=== PATIENT | female | born 1935 | race Caucasian/White ===

== ENCOUNTER 2018-01-07 07:17 | Inpatient (IN) ==
[2018-01-07] MEDS ORDERED: Sod Chloride 0.9% Inj 1,000 ML IV.SIG SCH (08:00)
[2018-01-07 08:11] LABS: Baso # (Auto) 0.1 th/mm3 (0.0-0.2); Baso % (Auto) 0.8 % (0.0-2.0); Eos # (Auto) 0.1 th/mm3 (0.0-0.4); Eos % (Auto) 1.9 % (0.0-4.0); Hematocrit 30.3 % (35.0-46.0); Hemoglobin 9.9 gm/dL (11.6-15.3); Lymph # (Auto) 0.8 th/mm3 (1.0-4.8); Lymph % (Auto) 12.2 % (9.0-44.0); Mean Corpuscular HGB Conc 32.6 % (32.0-36.0); Mean Corpuscular Hemoglobin 25.7 pg (27.0-34.0); Mean Corpuscular Volume 78.7 fL (80.0-100.0); Mean Platelet Volume 7.4 fL (7.0-11.0); Mono # (Auto) 0.7 th/mm3 (0.0-0.9); Mono % (Auto) 11.4 % (0.0-8.0); Neut # (Auto) 4.9 th/mm3 (1.8-7.7); Neut % (Auto) 73.7 % (16.0-70.0); Platelet Count 224 th/mm3 (150-450); Red Blood Count 3.85 mil/mm3 (4.00-5.30); White Blood Count 6.6 th/mm3 (4.0-11.0)
[2018-01-07 08:25] LABS: Activated Partial Thrombo Time 26.6 sec (24.3-30.1); Prothrombin Time 10.2 sec (9.8-11.6)
[2018-01-07 08:32] LABS: Carbon Dioxide 26.8 meq/L (21.0-32.0); Potassium 3.9 meq/L (3.5-5.1)
[2018-01-07] MEDS ORDERED: fentaNYL Citrate Inj 250 MCG/5 ML Ampul ONE (09:07)
[2018-01-07] MEDS ORDERED: ceFAZolin 2 GM Premix Inj 2 GM/50 ML PIGGYBACK IV.SIG ONE (09:59)
[2018-01-07] MEDS ORDERED: fentaNYL Citrate Inj 100 MCG/2 ML Ampul ONE (10:18)
--- NOTE | 2018-01-07 10:41 | P.RAD ---
Post Procedure Progress Note - Pre Procedure Diagnosis (1) Abdominal pain (2) Mesenteric ischemia due to arterial insufficiency - Post Procedure Diagnosis (1) Abdominal pain (2) Mesenteric ischemia due to arterial insufficiency - Procedure Information Procedure Date: 01/07/18 Supervising Radiologist: Derian Birch Jr, MD Proceduralist/Assist: Chepe Hill Estimated blood loss (mL): 0 Anesthesia: Conscious Sedation - Plan of Activity Patient to Unit: ROPU Patient Condition: Good See PACS Report for procedural detail/treatment. Vascular - Arterial Procedure Celiac Procedure: Angiogram, Stent Placement - Access right Leg Closure Site: right vascular closure device - Additional Information Findings: 60% stenosis of celiac with occluded SMA and VICTOR MANUEL. Successful primary stenting of celiac with good result. Plan: Loading dose of Plavix in holding. Script for Plavix x 90 days given. F/U with IR in 1 week.
[2018-01-07] MEDS ORDERED: Morphine Sulfate Inj 2 MG/ML Vial ONE (11:47)
[2018-01-07] MEDS ORDERED: Morphine Sulfate Inj 2 MG/ML Vial IV.PUSH ONE (12:30)
--- NOTE | 2018-01-07 13:09 | IR ---
EXAM DATE: 01/07/2018 12:00 AM EDT AGE/SEX: 82 years / Female INDICATIONS: Patient presents with Mesenteric/Celiac artery stenosis in need of a Mesenteric Angiogr am with possible interventions. Patient has abdominal pain with mesenteric ischemia. SMA and VICTOR MANUEL are occluded. Celiac is stenotic. CLINICAL DATA: This is the patient's initial encounter. Patient reports that signs and symptoms have been present for 3 months and indicates a pain score of 0/10. MEDICAL/SURGICAL HISTORY: Carcinoma, colon. Carcinoma, breast. Hypothyroidism. Anxiety, HTN, Bronchitis, Gastroparesis syndrome, GERD. . Knee surgery, Lumpectomy, Bilateral foot surgery. COMPARISON: No prior exams available for comparison. FLUORO TIME (min): 10 IMAGE SERIES: 11 ACCESS SITE: Right femoral artery SEDATION TIME (min): 45 CONTRAST (cc): 70 Visipaque (iodixanol) MEDICATION(S): 5 mg midazolam (Versed) IV ; 275 mcg fentanyl (Sublimaze) IV ; ; ; DEVICE(S): Right celiac artery stent (balloon expanding) Visi-Pro 7mm x 17mm ; Right common femoral artery Angio -Seal 6 FR ; ; ; ; ; . . PROCEDURE : 1. Ultrasound-guided puncture of the access site. 2. Conscious sedation with continuous EKG and Oximetry monitoring. 3. Angiography of the celiac 4. Primary stenting of the celiac 5. Angiography of the celiac post stenting 6. Angio-Seal closure device The patient's prior CTA October 17, 2017 was reviewed. The risks, benefits and alternatives to the proc edure were explained and verbal and written consent was obtained. The site was prepped in sterile fa shion. Full sterile technique was used, including cap, mask, sterile gloves and gown and a large nataliya rile sheet. Hand hygiene and 2% chlorhexidine and/or betadine/alcohol prep was utilized per protocol for cutaneous antisepsis. Sterile gel and sterile probe cover were utilized for ultrasound guidance . The skin and subcutaneous tissues were infiltrated with local anesthetic solution. With ultrasound and fluoroscopic guidance the common femoral artery was punctured and a vascular bishop th was placed. An angiogram was performed to confirm the appropriate position of the access. Selectio n of the celiac was then performed utilizing a Contra catheter. This shows a high-grade stenosis invo lving the proximal celiac with poststenotic dilatation. The SMA is occluded. Intervention was felt pr udent. A 6 Maldivian steerable sheath was placed and utilized to engage the origin of the celiac. Multip le images were performed in orthogonal positions. This confirms the high-grade nature of the stenosis . Through the steerable sheath a 7 mm x 17 mm balloon expandable stent was deployed. The balloon on t he stent was sufficient to be catheter occluding through the stenosis of the celiac. Under fluoroscop ic control the stent was deployed. 7 geo of pressure which is just shy of normal. A waist was initial ly noted on the balloon which resolved with 7 geo of pressure. A follow-up angiogram shows resolution of the stenosis with good brisk antegrade flow through the previously stenotic segment. The catheter and sheath were removed. Angio-Seal closure device was utilized at the access site. The patient tolerated the procedure well and there were no complications. Conscious sedation was performed with the prescribed dosages and duration as above in the presence of an independent trained radiology nurse to assist in the monitoring of the patient. EKG and oximetry remained stable throughout the procedure. CONCLUSION: 1. 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 The patient tolerated p rimary stenting. A good result was noted. The patient was placed on Plavix for 90 days. Electronically signed by: Derian Birch MD 01/07/2018 1:08 PM EDT
--- NOTE | 2018-01-07 14:14 | P.RAD ---
Radiology Note Pt seen following uneventful celiac artery stenting this morning. She reports a bloated, painful sensation to epigastrum. Denies this sensation at home. Has some nausea. No vomiting. VSS. AF Abd: ND, minimally tender to epigastric palpation, no guarding or rebound, CT: some ascites (present on previous OP CT), mild edema of pancreatic head. No hemorrhage. Stent in good position. A/P: Post procedure pain and nausea. Not felt related to procedure. Pt may be developing a pancreatitis. Will admit and have hospitalist evaluate to determine the workup. Their help is much appreciated.
--- NOTE | 2018-01-07 15:15 | CT ---
EXAM DATE: 01/07/2018 1:29 PM EDT AGE/SEX: 82 years / Female INDICATIONS: Mid abdomen pain after procedure CLINICAL DATA: This is the patient's initial encounter. Patient reports that signs and symptoms have been present for 1 day and indicates a pain score of 8/10. MEDICAL/SURGICAL HISTORY: Hypertension. Carcinoma, breast. Carcinoma, breast. None. RADIATION DOSE: 9.91 CTDI (mGy) COMPARISON: CTA fluoroscopy [facility] October 17, [address] PCI, [address] ABDOMEN AND PELVIS W/ CONTRA ST, 09/09/2015. . TECHNIQUE: Multiple contiguous axial images were obtained through the abdomen. Images were obtained using multiple row detector helical technique. Using automated exposure control and adjustment of the mA and/or kV according to patient size, radiation dose was kept as low as reasonably achievable to o btain optimal diagnostic quality images. DICOM format image data is available electronically for rev iew and comparison. FINDINGS: Lower Lungs: The visualized lower lungs are clear. Liver: Small volume ascites. This volume of ascites was present on the prior study from 2018. The dorina er has a homogeneous density without space-occupying lesion. There is no dilation of the biliary tree . Spleen: Homogeneous density without enlargement. Pancreas: There is edema surrounding the entire pancreas but most abundant within the pancreatic hea d. The pancreas is also mildly enlarged within the pancreatic head. No ductal dilatation. No hemorrha ge.. Kidneys: Normal in size and shape. No evidence of mass or hydronephrosis. Adrenal Glands: Unremarkable. Aorta: A celiac stent is observed and in good position. The fat surrounding the celiac stent is leonardo an. No hemorrhage adjacent to the stent. The aorta is calcified but without aneurysmal change. Bowel/Mesentery: Prior low anterior resection with a left lower quadrant colostomy. There is a franc tomal hernia containing loops of small bowel. This is unchanged.. Abdominal Wall: Intact. Retroperitoneum: No evidence of adenopathy in the retrocrural, para-aortic, or deep pelvic regions. Bladder: Contours are smooth. Reproductive Organs: No abnormal masses or calcifications seen. Inguinal: The inguinal region is unremarkable without evidence of adenopathy. Bony Structures: Unremarkable. CONCLUSION: 1. Edema and small volume ascites in a CT pattern suggesting acute pancreatitis. The edema involving the pancreas is new from the outside comparison study. The ascites is unchanged other than location. 2. Celiac stent in good position. No hemorrhage. 3. Prior partial colectomy and low anterior resection with left lower quadrant colostomy and parasto mal hernia containing small bowel loops. Electronically signed by: Derian Birch MD 01/07/2018 3:13 PM EDT
[2018-01-07] MEDS ORDERED: Acetaminophen/Codeine 300/30 MG Tablet PO PRN (16:49)
[2018-01-07] MEDS: Metoclopramide 10 MG Tablet PO SCH ×2 (18:04→22:07)
[2018-01-07] MEDS ORDERED: Bisacodyl 10 MG Supp RECTAL PRN (18:53)
[2018-01-07] MEDS ORDERED: Zolpidem Tartrate 5 MG Tablet PO PRN (18:53)
[2018-01-07] MEDS ORDERED: Acetaminophen 325 MG Tablet PO PRN (18:53)
[2018-01-07] MEDS ORDERED: Morphine Inj 4 MG/ML Vial IV.PUSH PRN ×3 (18:55)
[2018-01-07] MEDS ORDERED: Morphine Sulfate Inj 2 MG/ML Vial IV.PUSH PRN (18:55)
[2018-01-07] MEDS ORDERED: Naloxone Inj 0.4 MG/ML Vial IV.PUSH PRN (18:55)
--- NOTE | 2018-01-07 18:56 | P.HPIM ---
History of Present Illness Service: [facility] Primary Care Physician: UNKNOWN Chief Complaint: ABDOMINAL PAIN AND NAUSEA AND VOMITING History of Present Illness: Patient is a 82-year-old female who underwent a Stenting of the celiac artery with good results and started on Plavix by interventional radiology today Dr. Birch. Patient was noted to have some abdominal pain and some nausea and therefore patient will be held tonight and monitored for signs of pancreatitis We will get a.m. labs If these are stable hopefully patient will be eligible for discharge later tomorrow We will follow her throughout the admission for any other issues that may arise Inpatient Certification: I certify that the inpatient services were ordered in accordance with Medicare regulations governing the order. This includes certification that hospital inpatient services are reasonable and necessary and in the case of services not specified as inpatient-only under 42 CFR 419.22(n), that they are appropriately provided as inpatient services in accordance to with the 2-midnight benchmark under 43 CFR 412.3(e) Estimated Total Length of Stay (Days): 1 Plans for Post Hospital Care: Home Review of Systems All other systems reviewed negative except as stated in HPI [facility] - History History Provided By: Patient - Medical History Medical History: Medical History (Last Reviewed 01/07/18 @ 18:47 by Daryl Robb DO) Back pain Breast cancer Colon cancer Colostomy in place Hypertension Hypothyroid Stomach ulcer - Surgical History Surgical History: Surgical History (Last Reviewed 01/07/18 @ 18:47 by Daryl Robb DO) History of total right knee replacement - Family History Family History: Family History (Last Updated 01/07/18 @ 18:47 by Daryl Robb DO) Other Family history of hypertension - Tobacco History Second Hand Smoke Exposure: No Tobacco Use In Past 30 Days: No Smoking Status: Never smoker - Alcohol History How Often Do You Have a Drink Containing Alcohol: 4 or more times a week - Substance Use History Substance History: No History of Abuse - Travel History Recent Travel in the [place] Within the Last 8 Weeks: No Recent Travel Out of the Country Within the Last 8 Weeks: No Medications and Allergies Active Medications: Active Medications Acetaminophen/Codeine Phosphate (Tylenol W/Cod #3) 1 tab PO Q6H PRN PRN Reason: PAIN SCALE 1 TO 10 Last Admin: 01/07/18 18:04 Dose: 1 tab Clopidogrel Bisulfate (Plavix) 75 mg PO DAILY TIMOTHY Famotidine (Pepcid) 10 mg PO BID [facility] Levothyroxine Sodium (Synthroid) 88 mcg PO DAILY@0600 [facility] Metoclopramide HCl (Reglan) 10 mg PO QID [facility] Last Admin: 01/07/18 18:04 Dose: 10 mg Ondansetron HCl (Zofran Odt) 4 mg PO Q6H PRN PRN Reason: NAUSEA OR VOMITING Ramipril (Altace) 10 mg PO BID [facility] Allergies Allergy/AdvReac Type Severity Reaction Status Date / Time Sulfa (Sulfonamide Allergy Difficulty Verified 01/07/18 07:41 Antibiotics) Breathing Home Medications Medication Instructions Recorded Confirmed Type acetaminophen-codeine 1 tab PO Q6H PRN 01/07/18 01/07/18 History [Tylenol-Codeine #3] levothyroxine [Synthroid] 88 mcg PO DAILY 01/07/18 01/07/18 History metoclopramide HCl 10 mg PO QID 01/07/18 01/07/18 History ondansetron HCl 4 mg PO Q6-8H PRN 01/07/18 01/07/18 History ramipril 10 mg PO BID 01/07/18 01/07/18 History ranitidine HCl [Zantac] 150 mg PO BID 01/07/18 01/07/18 History Exam Vital signs: Vital Signs 01/07/18 08:02 01/07/18 10:50 01/07/18 11:05 Temperature 98.0 F 97.9 F Pulse Rate 80 80 77 Respiratory Rate 18 18 18 Blood Pressure 196/84 H 180/80 H 173/75 H Pulse Oximetry 97 93 L 98 01/07/18 11:20 01/07/18 11:35 01/07/18 11:55 Temperature Pulse Rate 86 75 74 Respiratory Rate 18 18 18 Blood Pressure 170/75 H 162/73 H 152/65 H Pulse Oximetry 97 95 97 01/07/18 12:25 01/07/18 12:30 01/07/18 12:55 Temperature Pulse Rate 75 73 Respiratory Rate 18 16 18 Blood Pressure 154/68 H 150/72 H Pulse Oximetry 96 97 01/07/18 13:25 01/07/18 13:55 01/07/18 14:45 Temperature Pulse Rate 95 H 80 78 Respiratory Rate 18 18 18 Blood Pressure 127/91 H 132/78 152/72 H Pulse Oximetry 96 96 95 01/07/18 14:55 01/07/18 15:55 01/07/18 17:10 Temperature 97.4 F L Pulse Rate 76 77 Respiratory Rate 18 18 16 Blood Pressure 145/51 H 157/67 H Pulse Oximetry 94 L 95 Intake & Output 01/06/18 01/07/18 01/07/18 18:59 06:59 18:59 Intake Total 1230 / 1230 Balance 1230 / 1230 Weight 48.988 kg Intake: IV 850 / 850 NS Inj 1,000 ML @ 100 mls/hr IV 800 / 800 .SIG .Q10H TIMOTHY Rx#:[id number] Ancef 2 GM Premix Inj 2 gm In 50 / 50 50 ml @ 0 mls/hr IV.SIG .STK- MED ONE Rx#:[id number] Oral 380 / 380 Other: # Voids 3 # Bowel Movements 0 Weight On Admission 48.988 kg Narrative: GENERAL: Awake alert and oriented x3 talkative and cooperative in mild distress SKIN: Warm and dry. HEAD: Atraumatic. Normocephalic. EYES: Pupils equal and round. No scleral icterus. No injection or drainage. EOMI ENT: No nasal bleeding or discharge. Mucous membranes pink and moist. Tongue is midline NECK: Trachea midline. No JVD. Supple CARDIOVASCULAR: Regular rate and rhythm. S1-S2 no S3 or S4 RESPIRATORY: No accessory muscle use. Clear to auscultation. Breath sounds equal bilaterally. GASTROINTESTINAL: Abdomen soft, non-tender, nondistended. Hepatic and splenic margins not palpable. Mild abdominal tenderness MUSCULOSKELETAL: Extremities without clubbing, cyanosis, or edema. No obvious deformities. NEUROLOGICAL: Awake and alert. No obvious cranial nerve deficits. Motor grossly within normal limits. Five out of 5 muscle strength in the arms and legs. Normal speech. PSYCHIATRIC: Appropriate mood and affect; insight and judgment normal. Results - Labs CBC & Chem 7: 01/07/18 07:50 01/07/18 07:50 Labs: Short CBC 01/07/18 Range/Units 07:50 WBC 6.6 (4.0-11.0) th/mm3 Hgb 9.9 L (11.6-15.3) gm/dL Hct 30.3 L (35.0-46.0) % Plt Count 224 (150-450) th/mm3 BMP 01/07/18 07:50 Sodium 137 Potassium 3.9 Chloride 104 Carbon Dioxide 26.8 BUN 9 Creatinine 0.86 Calcium 9.0 - Imaging Impressions Celiac/Hepatic Arteriogram 01/07/18 00:00 CONCLUSION: 1. 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 The patient tolerated primary stenting. A good result was noted. The patient was placed on Plavix for 90 days. Abdomen/Pelvis CT 01/07/18 12:51 CONCLUSION: 1. Edema and small volume ascites in a CT pattern suggesting acute pancreatitis. The edema involving the pancreas is new from the outside comparison study. The ascites is unchanged other than location. 2. Celiac stent in good position. No hemorrhage. 3. Prior partial colectomy and low anterior resection with left lower quadrant colostomy and parastomal hernia containing small bowel loops. Caprini VTE Risk Assessment Caprini VTE Risk Assessment: No/Low Risk (score <= 1) Caprini Risk Assessment Model: Point Value = 1 Point Value = 2 Point Value = 3 Point Value = 5 Age 41-60 Minor surgery BMI > 25 kg/m2 Swollen legs Varicose veins or History of unexplained or recurrent spontaneous Oral contraceptives or hormone replacement Sepsis (< 1 month) Serious lung disease, including pneumonia (< 1 month) Abnormal pulmonary function Acute myocardial infarction Congestive heart failure (< 1 month) History of inflammatory bowel disease Medical patient at bed rest Age 61-74 Arthroscopic surgery Major open surgery (> 45 min) Laparoscopic surgery (> 45 min) Malignancy Confined to bed (> 72 hours) Immobilizing plaster cast Central venous access Age >= 75 History of VTE Family history of VTE Factor V Leiden Prothrombin [id number] Lupus anticoagulant Anticardiolipin antibodies Elevated serum homocysteine Heparin-induced thrombocytopenia Other congenital or acquired thrombophilia Stroke (< 1 month) Elective arthroplasty Hip, pelvis, or leg fracture Acute spinal cord injury (< 1 month) Prophylaxis Regimen: Total Risk Factor Score Risk Level Prophylaxis Regimen 0-1 Low Early ambulation 2 Moderate Order ONE of the following: *Sequential Compression Device (SCD) *Heparin 5000 units SQ BID 3-4 Higher Order ONE of the following medications: *Heparin 5000 units SQ TID *Enoxaparin/Lovenox 40 mg SQ daily (WT < 150 kg, CrCl > 30 mL/min) *Enoxaparin/Lovenox 30 mg SQ daily (WT < 150 kg, CrCl > 10-29 mL/min) *Enoxaparin/Lovenox 30 mg SQ BID (WT < 150 kg, CrCl > 30 mL/min) AND/OR *Sequential Compression Device (SCD) 5 or more Highest Order ONE of the following medications: *Heparin 5000 units SQ TID (Preferred with Epidurals) *Enoxaparin/Lovenox 40 mg SQ daily (WT < 150 kg, CrCl > 30 mL/min) *Enoxaparin/Lovenox 30 mg SQ daily (WT < 150 kg, CrCl > 10-29 mL/min) *Enoxaparin/Lovenox 30 mg SQ BID (WT < 150 kg, CrCl > 30 mL/min) AND *Sequential Compression Device (SCD) Assessment and Plan - Plan Status post stenting to the celiac artery due to severe abdominal pain and history of mesenteric ischemia due to arterial insufficiency. Patient had an angiogram and stent placement. Had 60% stenosis of celiac with occluded SMA and VICTOR MANUEL and successful primary stenting of the celiac with good results by Dr. Birch today. patient has been loaded with Plavix today hypertension resume home medication-resume Altace Hypothyroidism resume Synthroid Peripheral vascular occlusive disease/PAD has already been started on Plavix A.m. labs Rule out pancreatitis with abdominal pain If labs are stable and tolerating a diet hopefully discharge tomorrow Follow-up with interventional radiology in [address] Birch Hopefully discharge tomorrow if labs are stable and no signs of pancreatitis or abdominal pain more so than usual prior to the procedure Code Status: Full code Discussed Condition With: RN and patient and case management Discharge Planning: Hopefully discharge tomorrow if labs are stable and tolerating a diet H&P: Quality - VTE Deep Vein Thrombosis/Pulmonary Embolism Present on Admission: No
[2018-01-07] MEDS: Ramipril 5 MG Capsule PO SCH (22:06)
[2018-01-07] MEDS: Famotidine 20 MG Tablet PO SCH (22:06)
[2018-01-07] MEDS: Senna/Docusate Sodium 8.6/50 MG Tablet PO SCH (22:07)
[2018-01-08] MEDS ORDERED: Levothyroxine 88 MCG Tablet PO SCH (06:00)
[2018-01-08 08:27] VITALS: RESP 16
[2018-01-08] MEDS: Famotidine 20 MG Tablet PO SCH (08:43)
[2018-01-08] MEDS: Metoclopramide 10 MG Tablet PO SCH (08:45)
[2018-01-08] MEDS: Senna/Docusate Sodium 8.6/50 MG Tablet PO SCH (08:47)
[2018-01-08] MEDS: Ramipril 5 MG Capsule PO SCH (08:50)
[2018-01-08 09:05] LABS: Baso % (Auto) 0.6 % (0.0-2.0); Eos # (Auto) 0.1 th/mm3 (0.0-0.4); Eos % (Auto) 0.9 % (0.0-4.0); Hematocrit 31.7 % (35.0-46.0); Hemoglobin 10.4 gm/dL (11.6-15.3); Lymph # (Auto) 0.7 th/mm3 (1.0-4.8); Lymph % (Auto) 11.8 % (9.0-44.0); Mean Corpuscular HGB Conc 32.7 % (32.0-36.0); Mean Corpuscular Hemoglobin 25.8 pg (27.0-34.0); Mean Corpuscular Volume 78.7 fL (80.0-100.0); Mean Platelet Volume 7.3 fL (7.0-11.0); Mono # (Auto) 0.7 th/mm3 (0.0-0.9); Neut # (Auto) 4.8 th/mm3 (1.8-7.7); Neut % (Auto) 75.7 % (16.0-70.0); Platelet Count 195 th/mm3 (150-450); Red Blood Count 4.03 mil/mm3 (4.00-5.30); Red Cell Distribution Width 18.7 % (11.6-17.2); White Blood Count 6.3 th/mm3 (4.0-11.0)
[2018-01-08 09:09] LABS: Prothrombin Time 10.2 sec (9.8-11.6)
[2018-01-08 09:27] LABS: Amylase 38 U/L (25-115); Anion Gap 9 meq/L (5-15); Aspartate Aminotransferase 20 U/L (15-37); Blood Urea Nitrogen 17 mg/dL (7-18); Carbon Dioxide 24.9 meq/L (21.0-32.0); Chloride 98 meq/L (98-107); Glomerular Filtration Rate 46 mL/min (>89); Glucose,Random 112 mg/dL (74-106); Lipase 92 U/L (73-393); Magnesium 1.8 mg/dL (1.5-2.5); Potassium 3.8 meq/L (3.5-5.1); Sodium 132 meq/L (136-145)
[2018-01-08 09:42] LABS: Alanine Aminotransferase 20 U/L (10-53); Alkaline Phosphatase 100 U/L (45-117); Free T4 (Free Thyroxine) 1.54 ng/dL (0.76-1.46); Phosphorus 4.5 mg/dL (2.5-4.9); Thyroid Stimulating Hormone 0.019 uIU/mL (0.358-3.740); Total Protein 6.4 g/dL (6.4-8.2)
--- NOTE | 2018-01-08 10:59 | P.PN ---
Subjective Interval history: This is a pleasant 82 y/o Female with status post Celiac artery stenting started on Plavix by Interventional irrigation specialist Dr Birch. Patient was noted to have some abdominal pain and some nausea and therefore patient will be held tonight and monitored for signs of pancreatitis, she has also Hypothyroidism, Colon cancer, Hypertension. 01/08: Seen in her bedroom, no vomit or diarrhea, is walking with Physical therapy specialist, has some nausea when walking at this time, seen by Interventional irrigation specialist recommended to continue Plavix at home and follow with him in one week. Physical Exam Vital signs: Vital Signs 01/07/18 11:05 01/07/18 11:20 01/07/18 11:35 Temperature Pulse Rate 77 86 75 Respiratory Rate 18 18 18 Blood Pressure 173/75 H 170/75 H 162/73 H Pulse Oximetry 98 97 95 01/07/18 11:55 01/07/18 12:25 01/07/18 12:30 Temperature Pulse Rate 74 75 Respiratory Rate 18 18 16 Blood Pressure 152/65 H 154/68 H Pulse Oximetry 97 96 01/07/18 12:55 01/07/18 13:25 01/07/18 13:55 Temperature Pulse Rate 73 95 H 80 Respiratory Rate 18 18 18 Blood Pressure 150/72 H 127/91 H 132/78 Pulse Oximetry 97 96 96 01/07/18 14:45 01/07/18 14:55 01/07/18 15:55 Temperature Pulse Rate 78 76 Respiratory Rate 18 18 18 Blood Pressure 152/72 H 145/51 H Pulse Oximetry 95 94 L 01/07/18 17:10 01/07/18 19:33 01/07/18 20:00 Temperature 97.4 F L 97.2 F L Pulse Rate 77 81 Respiratory Rate 16 16 16 Blood Pressure 157/67 H 126/60 Pulse Oximetry 95 99 01/08/18 00:00 01/08/18 04:00 01/08/18 08:00 Temperature 97.8 F 97.7 F 97.3 F L Pulse Rate 80 97 H 88 Respiratory Rate 16 17 16 Blood Pressure 120/62 120/58 L 132/60 Pulse Oximetry 97 96 95 Intake & Output 01/07/18 01/08/18 01/08/18 18:59 06:59 18:59 Intake Total 1610 / 1610 Balance 1610 / 1610 Weight 48.988 kg Intake: IV 850 / 850 NS Inj 1,000 ML @ 100 mls/hr IV 800 / 800 .SIG .Q10H TIMOTHY Rx#:[id number] Ancef 2 GM Premix Inj 2 gm In 50 / 50 50 ml @ 0 mls/hr IV.SIG .STK- MED ONE Rx#:[id number] Oral 760 / 760 Other: # Voids 3 1 Date of Last Bowel Movement 01/07/18 01/07/18 # Bowel Movements 0 Weight On Admission 48.988 kg Narrative: GENERAL: Awake alert and oriented x3 talkative and cooperative in mild distress SKIN: Warm and dry. HEAD: Atraumatic. Normocephalic. EYES: Pupils equal and round. No scleral icterus. No injection or drainage. EOMI ENT: No nasal bleeding or discharge. Mucous membranes pink and moist. Tongue is midline NECK: Trachea midline. No JVD. Supple CARDIOVASCULAR: Regular rate and rhythm. S1-S2 no S3 or S4 RESPIRATORY: No accessory muscle use. Clear to auscultation. Breath sounds equal bilaterally. GASTROINTESTINAL: Abdomen soft, non-tender, nondistended. Hepatic and splenic margins not palpable. Mild abdominal tenderness MUSCULOSKELETAL: Extremities without clubbing, cyanosis, or edema. No obvious deformities. NEUROLOGICAL: Awake and alert. No obvious cranial nerve deficits. PSYCHIATRIC: Appropriate mood and affect; insight and judgment normal. Results - Labs CBC & Chem 7: 01/08/18 08:48 01/08/18 08:48 Laboratory Results - last 24 hr 01/08/18 01/08/18 01/08/18 08:48 08:48 08:48 WBC 6.3 RBC 4.03 Hgb 10.4 L Hct 31.7 L MCV 78.7 L MCH 25.8 L MCHC 32.7 RDW 18.7 H Plt Count 195 MPV 7.3 Neut % (Auto) 75.7 H Lymph % (Auto) 11.8 [place] % (Auto) 11.0 H Eos % (Auto) 0.9 Baso % (Auto) 0.6 Neut # (Auto) 4.8 Lymph # (Auto) 0.7 L [place] # (Auto) 0.7 Eos # (Auto) 0.1 Baso # (Auto) 0.0 WBC Differential . Differential Comment Auto diff final PT 10.2 INR 1.0 Sodium 132 L Potassium 3.8 Chloride 98 Carbon Dioxide 24.9 Anion Gap 9 BUN 17 Creatinine 1.14 H Estimated GFR 46 L Random Glucose 112 H Calcium 8.0 L D Phosphorus 4.5 Magnesium 1.8 Total Bilirubin 0.6 AST 20 ALT 20 Alkaline Phosphatase 100 Total Protein 6.4 Albumin 3.0 L Amylase 38 Lipase 92 TSH 0.019 L Free T4 1.54 H - Imaging Impressions Celiac/Hepatic Arteriogram 01/07/18 00:00 CONCLUSION: 1. 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 The patient tolerated primary stenting. A good result was noted. The patient was placed on Plavix for 90 days. Abdomen/Pelvis CT 01/07/18 12:51 CONCLUSION: 1. Edema and small volume ascites in a CT pattern suggesting acute pancreatitis. The edema involving the pancreas is new from the outside comparison study. The ascites is unchanged other than location. 2. Celiac stent in good position. No hemorrhage. 3. Prior partial colectomy and low anterior resection with left lower quadrant colostomy and parastomal hernia containing small bowel loops. - Procedures Status post stenting to the celiac artery due to severe abdominal pain and history of mesenteric ischemia due to arterial insufficiency. Assessment and Plan - Plan Status post stenting to the celiac artery due to severe abdominal pain and history of mesenteric ischemia due to arterial insufficiency. Patient had an angiogram and stent placement. Had 60% stenosis of celiac with occluded SMA and VICTOR MANUEL and successful primary stenting of the celiac with good results by Dr. Birch today. patient has been loaded with Plavix today, okay to discharge at this time. hypertension controlled. Hypothyroidism continue Synthroid Peripheral vascular occlusive disease/PAD has already been started on Plavix Follow-up with interventional radiology in [address] Birch Code Status: Full Code Discussed Condition With: patient and nurse. also Physical Therapy at this time. Discharge Planning: Discharge Home.
--- NOTE | 2018-01-08 11:04 | P.RAD ---
Radiology Note Pt states feeling much better this morning. Reduction in epigastric pain. Denies nausea. VSS, remains AF ABD: ND, NT, Groin: clean and dry, no hematoma A/P: Improving pain. Doubtful this represents acute pancreatitis. Unsure to etiology of the pain. OK to d/c home from IR standpoint. Will have patient continue daily Plavix at home. She has been given a script. Return to IR in 1 week for f/u.
--- NOTE | 2018-01-08 11:27 | P.DS ---
Date of admission: 01/07/18 14:28 Primary care physician: UNKNOWN Attending physician on discharge: Rui Hull Anticipated date of discharge: 01/08/18 Brief History from admission: Patient is a 82-year-old female who underwent a Stenting of the celiac artery with good results and started on Plavix by interventional radiology today Dr. Birch. Patient was noted to have some abdominal pain and some nausea and therefore patient will be held tonight and monitored for signs of pancreatitis We will get a.m. labs If these are stable hopefully patient will be eligible for discharge later tomorrow We will follow her throughout the admission for any other issues that may arise DS: Diagnosis - Discharge Diagnosis (1) Abdominal pain Status: Acute (2) Mesenteric ischemia due to arterial insufficiency Status: Acute DS: Summary Hospital Course: This is a pleasant 82 y/o Female with status post Celiac artery stenting started on Plavix by Interventional clutch specialist Dr Birch. Patient was noted to have some abdominal pain and some nausea and therefore patient will be held tonight and monitored for signs of pancreatitis, she has also Hypothyroidism, Colon cancer, Hypertension. 01/08: Seen in her bedroom, no vomit or diarrhea, is walking with Physical therapy specialist, has some nausea when walking at this time, seen by Interventional clutch specialist recommended to continue Plavix at home and follow with him in one week. Assessment and Plan - Plan Status post stenting to the celiac artery due to severe abdominal pain and history of mesenteric ischemia due to arterial insufficiency. Patient had an angiogram and stent placement. Had 60% stenosis of celiac with occluded SMA and VICTOR MANUEL and successful primary stenting of the celiac with good results by Dr. Birch today. patient has been loaded with Plavix today, okay to discharge at this time. hypertension controlled. Hypothyroidism continue Synthroid Peripheral vascular occlusive disease/PAD has already been started on Plavix Follow-up with interventional radiology in [address] Birch Code Status: Full Code Discussed Condition With: patient and nurse. also Physical Therapy at this time. Discharge Planning: Discharge Home. - Time Spent with Patient Total time spent providing and/or coordinating discharge services: Less than 30 minutes - Quality: VTE Deep Vein Thrombosis/Pulmonary Embolism Present on Admission: No Exam Vital signs: Vital Signs 01/07/18 11:35 01/07/18 11:55 01/07/18 12:25 Temperature Pulse Rate 75 74 75 Respiratory Rate 18 18 18 Blood Pressure 162/73 H 152/65 H 154/68 H Pulse Oximetry 95 97 96 01/07/18 12:30 01/07/18 12:55 01/07/18 13:25 Temperature Pulse Rate 73 95 H Respiratory Rate 16 18 18 Blood Pressure 150/72 H 127/91 H Pulse Oximetry 97 96 01/07/18 13:55 01/07/18 14:45 01/07/18 14:55 Temperature Pulse Rate 80 78 Respiratory Rate 18 18 18 Blood Pressure 132/78 152/72 H Pulse Oximetry 96 95 01/07/18 15:55 01/07/18 17:10 01/07/18 19:33 Temperature 97.4 F L Pulse Rate 76 77 Respiratory Rate 18 16 16 Blood Pressure 145/51 H 157/67 H Pulse Oximetry 94 L 95 01/07/18 20:00 01/08/18 00:00 01/08/18 04:00 Temperature 97.2 F L 97.8 F 97.7 F Pulse Rate 81 80 97 H Respiratory Rate 16 16 17 Blood Pressure 126/60 120/62 120/58 L Pulse Oximetry 99 97 96 01/08/18 08:00 Temperature 97.3 F L Pulse Rate 88 Respiratory Rate 16 Blood Pressure 132/60 Pulse Oximetry 95 Intake & Output 01/07/18 01/08/18 01/08/18 18:59 06:59 18:59 Intake Total 1610 / 1610 Balance 1610 / 1610 Weight 48.988 kg Intake: IV 850 / 850 NS Inj 1,000 ML @ 100 mls/hr IV 800 / 800 .SIG .Q10H TIMOTHY Rx#:[id number] Ancef 2 GM Premix Inj 2 gm In 50 / 50 50 ml @ 0 mls/hr IV.SIG .STK- MED ONE Rx#:[id number] Oral 760 / 760 Other: # Voids 3 1 Date of Last Bowel Movement 01/07/18 01/07/18 # Bowel Movements 0 Weight On Admission 48.988 kg Narrative: GENERAL: Awake alert and oriented x3 talkative and cooperative in mild distress SKIN: Warm and dry. HEAD: Atraumatic. Normocephalic. EYES: Pupils equal and round. No scleral icterus. No injection or drainage. EOMI ENT: No nasal bleeding or discharge. Mucous membranes pink and moist. Tongue is midline NECK: Trachea midline. No JVD. Supple CARDIOVASCULAR: Regular rate and rhythm. S1-S2 no S3 or S4 RESPIRATORY: No accessory muscle use. Clear to auscultation. Breath sounds equal bilaterally. GASTROINTESTINAL: Abdomen soft, non-tender, nondistended. Hepatic and splenic margins not palpable. Mild abdominal tenderness MUSCULOSKELETAL: Extremities without clubbing, cyanosis, or edema. No obvious deformities. NEUROLOGICAL: Awake and alert. No obvious cranial nerve deficits. PSYCHIATRIC: Appropriate mood and affect; insight and judgment normal. Results Procedures completed during hospitalization: Status post stenting to the celiac artery due to severe abdominal pain and history of mesenteric ischemia due to arterial insufficiency. Labs on day of discharge: Labs from last 24 hours 01/08/18 01/08/18 01/08/18 08:48 08:48 08:48 WBC RBC Hgb Hct MCV MCH MCHC RDW Plt Count MPV Neut % (Auto) Lymph % (Auto) Garden % (Auto) Eos % (Auto) Baso % (Auto) Neut # (Auto) Lymph # (Auto) Garden # (Auto) Eos # (Auto) Baso # (Auto) WBC Differential Differential Comment PT 10.2 INR 1.0 Sodium 132 L Potassium 3.8 Chloride 98 Carbon Dioxide 24.9 Anion Gap 9 BUN 17 Creatinine 1.14 H Estimated GFR 46 L Random Glucose 112 H Hemoglobin A1c Pending Calcium 8.0 L D Phosphorus 4.5 Magnesium 1.8 Total Bilirubin 0.6 AST 20 ALT 20 Alkaline Phosphatase 100 Total Protein 6.4 Albumin 3.0 L Amylase 38 Lipase 92 TSH 0.019 L Free T4 1.54 H 01/08/18 08:48 WBC 6.3 RBC 4.03 Hgb 10.4 L Hct 31.7 L MCV 78.7 L MCH 25.8 L MCHC 32.7 RDW 18.7 H Plt Count 195 MPV 7.3 Neut % (Auto) 75.7 H Lymph % (Auto) 11.8 Garden % (Auto) 11.0 H Eos % (Auto) 0.9 Baso % (Auto) 0.6 Neut # (Auto) 4.8 Lymph # (Auto) 0.7 L Garden # (Auto) 0.7 Eos # (Auto) 0.1 Baso # (Auto) 0.0 WBC Differential . Differential Comment Auto diff final PT INR Sodium Potassium Chloride Carbon Dioxide Anion Gap BUN Creatinine Estimated GFR Random Glucose Hemoglobin A1c Calcium Phosphorus Magnesium Total Bilirubin AST ALT Alkaline Phosphatase Total Protein Albumin Amylase Lipase TSH Free T4 - Impressions ITS Impressions Celiac/Hepatic Arteriogram 01/07/18 00:00 CONCLUSION: 1. 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 The patient tolerated primary stenting. A good result was noted. The patient was placed on Plavix for 90 days. Abdomen/Pelvis CT 01/07/18 12:51 CONCLUSION: 1. Edema and small volume ascites in a CT pattern suggesting acute pancreatitis. The edema involving the pancreas is new from the outside comparison study. The ascites is unchanged other than location. 2. Celiac stent in good position. No hemorrhage. 3. Prior partial colectomy and low anterior resection with left lower quadrant colostomy and parastomal hernia containing small bowel loops. Discharge Plan - Discharge Disposition Patient Disposition: 01 Discharge Home - Discharge Condition Condition: Good - Discharge Order Discharge Orders: Discharge Order (Routine); Ordered 01/08/18 Ordered By: Rui Hull - Discharge Details Anticipated Discharge Date: 01/08/18 Discharge Comment: Follow up with PCP in three days and with Interventional clutch specialist Doctor Eyal in - Physicians Team Primary Care Provider: UNKNOWN, Attending Provider: Rui Hull - Rxs /Orders / Referrals /Forms Prescriptions: New clopidogrel [Plavix] 75 mg Tablet 75 mg PO DAILY Qty: 30 RF: 0 Continue acetaminophen-codeine [Tylenol-Codeine #3] 300-30 mg Tablet 1 tab PO Q6H PRN (Reason: Pain) levothyroxine [Synthroid] 88 mcg Tablet 88 mcg PO DAILY metoclopramide HCl 10 mg Tablet 10 mg PO QID ondansetron HCl 4 mg Tablet 4 mg PO Q6-8H PRN (Reason: Nausea And Vomiting) ramipril 10 mg Capsule 10 mg PO BID ranitidine HCl [Zantac] 150 mg Tablet 150 mg PO BID Referrals: UNKNOWN, [Primary Care Provider] - See Instructions
[2018-01-08 12:14] VITALS: BP 119/56; PULSE 83; TEMP 98; O2SAT 96
[2018-01-08 16:40] LABS: Hemoglobin A1c 5.3 % (4.3-6.0)
== END 2018-01-08 12:41 | disposition home or self-care (01) ==
LOC: HROP 07:17 → HRIP 07:29 → N06 16:47
PROVIDERS: ADMIT Internal Medicine; ATTEND Internal Medicine